=== PATIENT | male | born 1995 | race Caucasian/White ===

== ENCOUNTER 2023-05-25 14:37 | Emergency (ER) | payer MEDICAID ==
[~2023-05-25] VITALS: Ht 177.8 cm; Wt 83.9 kg
[2023-05-25 15:04] VITALS: BP 123/68; PULSE 76; RESP 16; TEMP 98.1; O2SAT 98
== END 2023-05-25 17:00 | disposition home or self-care (01) ==
LOC: MED 14:37
DX: S62.354A Nondisplaced fracture of shaft of fourth metacarpal bone, right hand, initial encounter for closed fracture (principal); X58.XXXA Exposure to other specified factors, initial encounter; Y92.149 Unspecified place in prison as the place of occurrence of the external cause; Y93.89 Activity, other specified; Y99.8 Other external cause status
CPT/HCPCS: 73130; 99283